=== PATIENT | female | born 1990 | race Caucasian/White ===

== ENCOUNTER 2017-05-16 13:42 | Outpatient (CLI) | payer OTHER ==
--- NOTE | 2017-05-16 15:00 | TRIAGE ---
OB Triage Datetime Report Generated by CPN: 05/16/2017 15:00 Datetime: 05/16/2017 14:51 Labor Evaluation Frequency: x4 Monitor Mode: External Duration (sec)2399: 60-140 Quality: Mild Pattern: Normal: <= 5 Contractions in 10 Minutes Resting Tone [place]: Relaxed Heart Rate FHR Baseline Rate: 155 Monitor Mode: External US Variability: Moderate 6-25 bpm Accelerations: 15X15 Decelerations: None Category: Category I Pain Assessment Pain Scale: 0 Pain Presence: Intermittent Pain Type: Pressure Pain Location: Abdomen Pain Goal: 3 Datetime: 05/16/2017 14:07 Vaginal Exam Dilatation (cms): 3.5 Effacement (%): 80 Station: -3 Exam By: [facility] Datetime: 05/16/2017 13:57 Assessment Type: Triage Maternal Assessment Level of Consciousness: Fully Conscious DTR's/Clonus: DTRs 2+; No Clonus Headache: Denies Blurred Vision: No Respiratory Effort: Unlabored; Regular Rhythm; Equal Expansion Breath Sounds, Left: Clear and Equal Breath Sounds, Right: Clear and Equal Nausea/Vomiting: Denies RUQ Epigastric Pain: Denies Facial Edema: None Fall Risk Assessment History of Falling: (0) No Secondary Diagnosis: (0) No Ambulatory Aid: (0) Bedrest/Nurse Assist IV Therapy: (0) No Gait: (0) Normal/Bedrest/Immobile Mental Status: (0) Oriented to Own Ability Fall Score: 0 Fall Risk Score Definition: No Risk: No action required Datetime: 05/16/2017 13:56 Time of Arrival: 05/16/2017 13:35 EGA: 38.2 Arrived By: Ambulatory Arrived From: Home Chief Complaint: Pt. came to hospital c/o uc and pressure, deny vag. bleeding. deny srom Movement: Present Contractions: Irregular Rupture of Membranes: Denies Vaginal Bleeding: None Vaginal Discharge: Denies Recent Sexual Intercouse: Denies Abdominal Trauma: Not Applicable Patient Complaints: Contractions Additional Patient Complaints: r/o labor Time Provider Notified: 05/16/2017 14:23 Provider Notified:
--- NOTE | 2017-05-16 16:23 | QN ---
Documentation Comment iup 38 weeks co ucx cat I tarcing vss a/o iup 38 weeks false labor dc [facility] MELISSA DIOP MD May 16, 2017 16:23
== END 2017-05-16 15:00 | disposition home or self-care (01) ==
LOC: OBT 13:42 → L-D 13:43 → OBT 15:00
PROVIDERS: ATTEND Obstetrics & Gynecology
DX: O47.1 False labor at or after 37 completed weeks of gestation (principal); Z3A.38 38 weeks gestation of pregnancy
CPT/HCPCS: G0463

== ENCOUNTER 2017-05-23 17:57 | Inpatient (IN) | payer OTHER ==
[~2017-05-23] VITALS: Ht 170.2 cm; Wt 132.3 kg
[2017-05-23 18:14] VITALS: BP 138/65; PULSE 95; RESP 20; Ht 170.2 cm; Wt 132.3 kg
[2017-05-23] MEDS ORDERED: PRENAT PO (18:21)
[2017-05-23] MEDS ORDERED: BUTORPHANOL 2 MG INJ IV PRN (18:30)
[2017-05-23] MEDS ORDERED: METHYLERGONOVINE 0.2 MG INJ IM PRN (18:30)
[2017-05-23] MEDS ORDERED: OXYTOCIN 30 UNITS/LR 500 ML IV PRN (18:30)
[2017-05-23] MEDS ORDERED: ACETAMINOPHEN/CODEINE #3 TAB PO PRN (18:30)
[2017-05-23] MEDS ORDERED: OXYTOCIN 30 UNITS/LR 500 ML IV SCH ×2 (18:30)
[2017-05-23] MEDS ORDERED: LIDOCAINE 1% (MPF) 30 ML INJ INJ PRN (18:30)
[2017-05-23] MEDS ORDERED: IBUPROFEN 600 MG TAB PO PRN (18:30)
[2017-05-23] MEDS ORDERED: CARBOPROST 250 MCG INJ IM PRN (18:30)
[2017-05-23] MEDS ORDERED: MISOPROSTOL 200 MCG TAB PR PRN (18:30)
[2017-05-23 18:40] LABS: ADD SCAN DIFF NO
[2017-05-23] MEDS: LACTATED RINGER'S 1,000 ML IV SCH ×2 (18:40→22:28)
[2017-05-23 18:42] LABS: BASOPHILS % 0.2 % (0.0-2.0); EOSINOPHILS # 0.1 10^3/ul (0.0-0.5); EOSINOPHILS % 0.8 % (0.0-7.0); HEMATOCRIT 37.9 % (37.0-47.0); HEMOGLOBIN 12.6 g/dl (12.0-16.0); LYMPHOCYTES # 2.5 10^3/ul (0.8-2.9); LYMPHOCYTES % 16.2 % (15.0-51.0); MEAN CORPUSCULAR HEMOGLOBIN 26.6 pg (29.0-33.0); MEAN CORPUSCULAR HGB CONC 33.2 g/dl (32.0-37.0); MEAN PLATELET VOLUME 9.7 fl (7.4-10.4); MONOCYTE # 0.8 10^3/ul (0.3-0.9); MONOCYTES % 5.4 % (0.0-11.0); NEUTROPHIL # 11.8 10^3/ul (1.6-7.5); NEUTROPHILS % 76.9 % (39.0-77.0); PLATELET COUNT 328 10^3/UL (140-415); RED BLOOD COUNT 4.74 10^6/ul (4.20-5.40); RED CELL DISTRIBUTION WIDTH 15.9 % (11.5-14.5); WHITE BLOOD COUNT 15.3 10^3/ul (4.8-10.8)
[2017-05-23 19:01] LABS: INR 0.94; PROTIME 12.6 Sec (12.2-14.2)
[2017-05-23 19:02] LABS: PARTIAL THROMBOPLASTIN TIME 27.8 Sec (25.0-35.0)
[2017-05-23] MEDS: LACTATED RINGER'S 1,000 ML IV PRN ×2 (19:08→20:04)
[2017-05-23] MEDS ORDERED: FENTAnyl 2MCG/ML-ROPIV 0.2% 100 ML ONE (21:52)
[2017-05-24] MEDS ORDERED: NALOXONE (0.4 MG/ML) INJ IV PRN (05:00)
[2017-05-24] MEDS: FENTAnyl 2MCG/ML-ROPIV 0.2% 100 ML BAG EPI SCH ×2 (05:01→11:17)
[2017-05-24] MEDS: LACTATED RINGER'S 1,000 ML IV SCH (06:38)
[2017-05-24] MEDS ORDERED: OXYTOCIN 30 UNITS/LR 500 ML IV SCH (09:00)
[2017-05-24 12:30] VITALS: BP 124/56; PULSE 84; RESP 19
--- NOTE | 2017-05-24 14:18 | HP ---
Date/Time of Note Date/Time of Note DATE: 05/24/17 TIME: 14:05 OB - History Hx of Present Free Text/Dictation 26 years old female 3 para 2 EDC May 28, 2017 admitted to [facility] in labor pelvic examination on admission cervical dilatation on admission cervix 6 cm dilated 70% effaced presentation vertex at - 2 station patient having contraction every 2-5 minute Chief Complaint: Labor contraction Estimated Due Date: May 28, 2017 : 3 Para: 2 Care: Good Care Ultrasounds: Normal mid trimester US Obstetrical Complications: None Medical Complications: None Past Family/Social History * Past Medical, Surgical, Family and Obstetric Histories reviewed from chart. Rubella: immune RPR/VDRL: Negative GBS Status: Negative HBsAG: Negative OB Admission Exam Vital Signs Vital Signs Vital Signs Date Time Temp Pulse Resp B/P Pulse Ox O2 Delivery O2 Flow Rate FiO2 05/23/17 18:14 99.0 95 20 138/65 Room Air Physical Exam HEENT: WNL Heart: Rhythm Normal Lungs: Clear, Equal Abdomen: WNL Extremities: Normal Reflexes: Normal Cervical Dilatation: 6cm Effacement: 75% Station: -2 Membranes: Intact Heart Rate: 130's Accelerations: Accelerations Present Decelerations: No Decelerations Varibility: Moderate Contractions on Admission: < 5 Minutes Apart Intensity: Firm Last 72 hours Lab Results CBC & BMP 05/23/17 18:30 OB Assessment/Plan Reason for admission: other (Expecting management for vaginal delivery) Plan: Expectant Management AL JURADO MD May 24, 2017 14:15
--- NOTE | 2017-05-24 14:25 | LDN ---
Date/Time of Note Date/Time of Note DATE: 05/24/17 TIME: 14:20 Delivery Summary Normal spontaneous vaginal delivery of a baby boy from OA position shoulders delivered without any difficulty rest of the baby's body followed cord clamped after stopped pulsation placenta is spontaneous expulsion inspected complete blood loss 250 cc vaginal perineal inspection no laceration. Weeks of Gestation 39 weeks 2 days Placenta Delivered: Spontaneously Meconium: none Episiotomy: No Estimated blood loss: 250 Sponge & Needle done & correct: Yes All needle counts correct: Yes Any foreign bodies felt in the: No Problems: Delivery Information Sex Sex: male Apgars 1 Minute: 8 5 Minute: 9 Suctioning Nose & mouth suctioned at radha: Yes Delee suction performed: No Umbilical Cord Umbilical cord with: 3 Vessels Cord presentations: no nuchal cord Cord Blood was obtained: Yes AL JURADO MD May 24, 2017 14:24
[2017-05-24] MEDS ORDERED: ACETAMINOPHEN/CODEINE #3 TAB PO PRN ×2 (15:00)
[2017-05-24] MEDS ORDERED: ONDANSETRON 4 MG INJ IV PRN (15:00)
[2017-05-24] MEDS ORDERED: LANOLIN 7 GM TUBE TOP PRN (15:00)
[2017-05-24] MEDS ORDERED: BENZOCAINE 20% 56 ML SPRAY TOP PRN (15:00)
[2017-05-24] MEDS ORDERED: ACETAMINOPHEN 325 MG TAB PO PRN (15:00)
[2017-05-24] MEDS ORDERED: DIBUCAINE 1% 30 GM OINT PR PRN (15:00)
[2017-05-24] MEDS ORDERED: OXYCODONE/ASPIRIN (4.88/325) TAB PO PRN ×2 (15:00)
[2017-05-24] MEDS ORDERED: WITCH HAZEL/GLYCERIN PAD PR PRN (15:00)
[2017-05-24 16:00] VITALS: BP 125/62; PULSE 80; RESP 19
[2017-05-24] MEDS: IBUPROFEN 600 MG TAB PO SCH (18:21)
[2017-05-24] MEDS: OXYTOCIN 30 UNITS/LR 500 ML IV SCH ×2 (18:50→18:55)
[2017-05-24 19:15] VITALS: BP 128/70; PULSE 88; RESP 18
[2017-05-24] MEDS: SENNA/DOCUSATE NA (8.6MG/50MG) TAB PO SCH (21:02)
[2017-05-25] VITALS: BP 110/70; PULSE 69; RESP 18
[2017-05-25] MEDS: IBUPROFEN 600 MG TAB PO SCH ×4 (00:11→18:57)
[2017-05-25 03:50] VITALS: BP 113/53; PULSE 87; RESP 18
[2017-05-25 07:41] LABS: ADD SCAN DIFF NO
[2017-05-25 07:47] LABS: BASOPHIL # 0.1 10^3/ul (0.0-0.1); BASOPHILS % 0.5 % (0.0-2.0); EOSINOPHILS # 0.3 10^3/ul (0.0-0.5); EOSINOPHILS % 2.6 % (0.0-7.0); HEMATOCRIT 33.2 % (37.0-47.0); HEMOGLOBIN 10.8 g/dl (12.0-16.0); LYMPHOCYTES # 2.8 10^3/ul (0.8-2.9); LYMPHOCYTES % 26.3 % (15.0-51.0); MEAN CORPUSCULAR HEMOGLOBIN 26.8 pg (29.0-33.0); MEAN CORPUSCULAR HGB CONC 32.5 g/dl (32.0-37.0); MEAN CORPUSCULAR VOLUME 82.4 fl (82.0-101.0); MEAN PLATELET VOLUME 10.4 fl (7.4-10.4); MONOCYTE # 0.5 10^3/ul (0.3-0.9); MONOCYTES % 4.9 % (0.0-11.0); NEUTROPHILS % 65.1 % (39.0-77.0); PLATELET COUNT 269 10^3/UL (140-415); RED BLOOD COUNT 4.03 10^6/ul (4.20-5.40); WHITE BLOOD COUNT 10.7 10^3/ul (4.8-10.8)
[2017-05-25 08:00] VITALS: BP 120/58; PULSE 80; RESP 19
[2017-05-25] MEDS: SENNA/DOCUSATE NA (8.6MG/50MG) TAB PO SCH ×2 (08:25→21:00)
--- NOTE | 2017-05-25 11:58 | DS ---
Date/Time of Note Date/Time of Note DATE: 05/25/17 TIME: 11:55 Post day 1 Patient is doing well, Ambulatory She is afebrile Abdomen is soft , Fundus is firm Moderate amount of lochia Breasts are soft, Nipples are intact No calf tenderness. Perineum is healing well. Breast feeding the new born. Obstetrical Discharge Record Final Diagnosis Final Diagnosis: Term delivered Vaginal Delivery Obstetrical Delivery: Spontaneous Condition on Discharge Physical Assessment Voiding: Yes Bowel Movement: Yes Breast: Soft, non-tender Fundus: Firm Abdomen and Incision: Laboratory Tests Test 05/25/17 06:27 White Blood Count 10.710^3/ul Red Blood Count 4.0310^6/ul Hemoglobin 10.8g/dl Hematocrit 33.2% Mean Corpuscular Volume 82.4fl Mean Corpuscular Hemoglobin 26.8pg Mean Corpuscular Hemoglobin Concent 32.5g/dl Red Cell Distribution Width 16.0% Platelet Count 24976^3/UL Mean Platelet Volume 10.4fl Neutrophils % 65.1% Lymphocytes % 26.3% Monocytes % 4.9% Eosinophils % 2.6% Basophils % 0.5% Nucleated Red Blood Cells % 0.0/100WBC Neutrophils # 7.010^3/ul Lymphocytes # 2.810^3/ul Monocytes # 0.510^3/ul Eosinophils # 0.310^3/ul Basophils # 0.110^3/ul Nucleated Red Blood Cells # 0.010^3/ul Current Medications Medications (Trade) Dose Ordered Sig/Uche Route PRN Reason Start Time Stop Time Status Last Admin Dose Admin Lactated Ringer's (Lr) 1,000 ml @ 125 mls/hr Q8H IV 05/23/17 18:16 05/24/17 14:59 DC 05/24/17 06:38 Butorphanol Tartrate (Stadol) 2 mg Q2H PRN IV PAIN 05/23/17 18:30 Lidocaine 30 ml 30 ml ONCE PRN INJ EPISIOTOMY/TEARING 05/23/17 18:30 05/24/17 14:59 DC Oxytocin/Lactated Ringer's 500 ml @ 125 mls/hr ONCE -MAY REPEAT X1 IV 05/23/17 18:30 05/24/17 14:59 DC 05/24/17 14:30 Oxytocin/Lactated Ringer's 500 ml @ 125 mls/hr ONCE IV 05/23/17 18:30 05/24/17 14:59 DC Ibuprofen (Motrin) 600 mg ONCE PRN PO Mild Pain (Pain Score 1-3) 05/23/17 18:30 05/24/17 12:53 Acetaminophen/ Codeine Phosphate 2 tab 2 tab ONCE PRN PO Moderate to Severe Pain (4-10) 05/23/17 18:30 Lactated Ringer's 1,000 ml @ 2,000 mls/hr Q30M PRN IV PRE-EPIDURAL BOLUS 05/23/17 18:30 05/23/17 20:04 Oxytocin/Lactated Ringer's 500 ml @ 0 mls/hr ONCE PRN IV For Hemorrhage Management 05/23/17 18:30 05/24/17 14:59 DC Methylergonovine Maleate (Methergine) 0.2 mg ONCE PRN IM VAGINAL BLEEDING 05/23/17 18:30 Carboprost Tromethamine (Hemabate) 250 mcg ONCE PRN IM VAGINAL BLEEDING 05/23/17 18:30 Misoprostol 1000 mcg 1,000 mcg ONCE PRN OH VAGINAL BLEEDING 05/23/17 18:30 Fentanyl/ Ropivacaine 100 ml @ ud STK-MED ONCE .ROUTE 05/23/17 21:52 05/23/17 21:53 DC Naloxone HCl (Narcan) 0.2 mg Q2M PRN IV FOR RESP RATE 8 OR LESS 05/24/17 05:00 Fentanyl/ Ropivacaine 100 ml 100 ml EPIDURAL (PCEA) EPI 05/24/17 05:00 05/24/17 15:00 DC 05/24/17 11:17 Oxytocin/Lactated Ringer's 500 ml @ 0 mls/hr Q0M IV 05/24/17 09:00 05/24/17 09:15 Oxytocin/Lactated Ringer's 500 ml @ 125 mls/hr Q4H IV 05/24/17 14:55 05/24/17 22:54 DC 05/24/17 18:50 Ibuprofen (Motrin) 600 mg Q6 PO 05/24/17 18:00 05/25/17 05:34 Acetaminophen (Tylenol Tab) 650 mg Q4H PRN PO PAIN LEVEL 1-5 05/24/17 15:00 Acetaminophen/ Codeine Phosphate (Tylenol No.3) 1 tab Q4H PRN PO PAIN LEVEL 1-5 05/24/17 15:00 Acetaminophen/ Codeine Phosphate (Tylenol No.3) 2 tab Q4H PRN PO PAIN LEVEL 6-10 05/24/17 15:00 Oxycodone/Aspirin (Percodan) 1 tab Q3H PRN PO PAIN LEVEL 1-5 05/24/17 15:00 Oxycodone/Aspirin (Percodan) 2 tab Q3H PRN PO PAIN LEVEL 6-10 05/24/17 15:00 Ondansetron HCl (Zofran Inj) 4 mg Q6H PRN IV NAUSEA AND/OR VOMITING 05/24/17 15:00 Senna/Docusate Sodium (Senokot-S) 1 tab BID PO 05/24/17 21:00 05/25/17 08:25 [place]/ Glycerin (Tucks Pads) 1 pad BEDSIDE MEDICATION PRN [place] HEMORRHOID/EPISIOTMY PAIN 05/24/17 15:00 05/24/17 19:07 Benzocaine (Dermoplast [place]) 1 spray BEDSIDE MEDICATION PRN TOP HEMORRHOID/EPISIOTMY PAIN 05/24/17 15:00 05/24/17 19:07 Dibucaine (Nupercainal) 1 applic BEDSIDE MEDICATION PRN [place] HEMORRHOID/EPISIOTMY PAIN 05/24/17 15:00 Lanolin (Cjj-P-Uebgco) 1 applic BEDSIDE MEDICATION PRN TOP BEDSIDE FOR KATY TO NIPPLES 05/24/17 15:00 05/24/17 19:06 Measles/Mumps/ Rubella Vaccine Live (Mmr Ii Vaccine) 0.5 ml ONCE ONCE SC* 05/26/17 09:00 05/26/17 09:01 Calf Tenderness: No Patient Condition: Good LINO ROSALES MD May 25, 2017 11:58
[2017-05-25 22:15] VITALS: BP 121/54; PULSE 77; RESP 18
[2017-05-26 03:51] VITALS: BP 134/60; PULSE 77; RESP 18
[2017-05-26] MEDS: IBUPROFEN 600 MG TAB PO SCH ×3 (06:47→12:49)
[2017-05-26 08:00] VITALS: BP 125/63; PULSE 70; RESP 18
[2017-05-26] MEDS ORDERED: MEASLES,MUMPS,RUBELLA VACCINE INJ SC* ONE (09:00)
[2017-05-26] MEDS: SENNA/DOCUSATE NA (8.6MG/50MG) TAB PO SCH (10:31)
[2017-05-26 16:30] VITALS: BP_SYST 80; PULSE 76; RESP 19
== END 2017-05-26 17:20 | disposition home or self-care (01) | DRG 775 ==
LOC: L-D 17:57 → PP1 05-24 15:09 → EDSTATUS 05-28 17:55
PROVIDERS: ADMIT Obstetrics & Gynecology; ATTEND Obstetrics & Gynecology
PROC: 10E0XZZ Delivery of Products of Conception, External Approach (ICD-10-PCS; principal; 2017-05-24)
DX: O80 Encounter for full-term uncomplicated delivery (principal); Z37.0 Single live birth; Z3A.39 39 weeks gestation of pregnancy
CPT/HCPCS: 62319; 85025; 85610; 85730; 86592; 86900; 86901; 87340; J2590; J3010; J7120